=== PATIENT | female | born 1980 | race Caucasian/White ===

== ENCOUNTER 2019-05-14 20:31 | Emergency (ER) | payer MEDICAID ==
[~2019-05-14] VITALS: Ht 162.6 cm; Wt 77.6 kg
[2019-05-14 21:02] VITALS: Ht 162.6 cm; Wt 77.6 kg
[2019-05-14 23:19] VITALS: BP 152/79
== END 2019-05-14 23:10 | disposition home or self-care (01) ==
LOC: ED 20:31
DX: K04.7 Periapical abscess without sinus (principal); I10 Essential (primary) hypertension
CPT/HCPCS: J0696; J1100; J1885; J3490

== ENCOUNTER 2019-11-25 22:53 | Emergency (ER) | payer MEDICAID ==
[~2019-11-25] VITALS: Ht 162.6 cm; Wt 77.1 kg
[2019-11-25 22:58] VITALS: BP 151/61; Ht 162.6 cm; Wt 77.1 kg
== END 2019-11-26 00:04 | disposition left against medical advice (07) ==
LOC: ED 22:53
DX: R05 Cough (principal); R11.10 Vomiting, unspecified; R06.2 Wheezing; I10 Essential (primary) hypertension
CPT/HCPCS: 87804